=== PATIENT | female | born 1965 | race Caucasian/White ===

== ENCOUNTER 2016-11-25 10:17 | Emergency (ER) | payer OTHER ==
[~2016-11-25 10:17] MED LIST: CARV3.125 PO; FEXO60TA PO; LISI10TA PO; PLAV75TA PO; PRAV80TA PO
[2016-11-25 10:19] VITALS: BP 161/98; PULSE 75; RESP 15; TEMP 98.3; O2SAT 99
[2016-11-25 11:30] LABS: BLOOD, URINE NEG (NEG); GLUCOSE,URINE NEG (NEG); KETONE, URINE NEG (NEG); MUCUS URINE FEW /lpf (OCC); NITRITE,URINE NEG (NEG); SQUAMOUS EPITHELIAL CELL URINE 5 /hpf (0-5); URINE COLOR YELLOW (YELLW/STRAW)
[2016-11-25 11:32] LABS: COMMENT (UR) CULT NOT INDICATED; CULTURE IF INDICATED CULT NOT INDICATED
[2016-11-25] MEDS ORDERED: PLAV75TA29 PO (12:10)
[2016-11-25] MEDS ORDERED: CARV6.252 PO (12:10)
[2016-11-25] MEDS ORDERED: LISI30TA4 PO (12:10)
[2016-11-25] MEDS ORDERED: LOVA10TA PO (12:10)
[2016-11-25] MEDS ORDERED: ALLE60TA PO (12:10)
[2016-11-25] MEDS ORDERED: KETOROLAC TROMETHAMINE 60 MG/2 ML (IM) VIAL IM ONE (13:00)
--- NOTE | 2016-11-25 13:00 | PD ---
HPI Chief Complaint: Flank/Kidney Pain Time Seen by Provider: 12:43 Travel History International Travel<30 days: No Contact w/Intl Traveler<30days: No Traveled to known affect area: No History of Present Illness HPI Patient is a 51-year-old female presenting to emergency room for evaluation of left lower back and flank pain. Patient states that ongoing for 1 month, it seems to started when she started a new job at [employer]. 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 Patient feels that she could have a kidney stone which she has had in the past. She states the pain is an ache, it's constant but it's better in the morning. She states her pain is a 6 out of 10, she denies any dysuria, hematuria, fever, chills, abdominal pain, nausea or vomiting. She has taken Tylenol with some relief of her symptoms but it does not completely alleviate the pain. PFSH Past Medical History Arthritis: Yes Anxiety: No Depression: No Heart Rhythm Problems: No Cardiac Catheterization: No High Cholesterol: Yes Congestive Heart Failure: No Cerebrovascular Accident: Yes (4 x TIA) Diabetes: No Diminished Hearing: No Genitourinary: No Hypertension: Yes Musculoskeletal: Yes Neurologic: Yes Psychiatric: No Reproductive: No Respiratory: No Myocardial Infarction: No Tetanus Vaccination: > 5 Years Influenza Vaccination: No ?: Not LMP: IRREGULAR : 0 Past Surgical History AICD: No Body Medical Devices: PINS INSERTED IN RIGHT FOREARM Coronary Artery Bypass Graft: No Insulin Pump: No Joint Replacement: No Pacemaker: No Other Surgery: Yes Social History Alcohol Use: No Tobacco Use: No Substance Use: No Allergies-Medications (Allergen,Severity, Reaction): Coded Allergies: No Known Allergies (Verified , 11/25/16) Reported Meds & Prescriptions Reported Meds & Active Scripts Active Reported Emma Allergy (Fexofenadine HCl) 60 Mg Tab 60 Mg PO BID Lisinopril 30 Mg Tab 30 Mg PO DAILY Carvedilol 6.25 Mg Tab 6.25 Mg PO BID Plavix (Clopidogrel Bisulfate) 75 Mg Tab 75 Mg PO DAILY Lovastatin 10 Mg Tab 10 Mg PO DAILY Review of Systems Except as stated in HPI: all other systems reviewed are Neg Musculoskeletal: Positive: Myalgias Physical Exam Narrative GENERAL: Well-developed, well-nourished, alert female. Resting comfortably in no acute distress. SKIN: Warm and dry. HEAD: Atraumatic. Normocephalic. EYES: Pupils equal and round. No scleral icterus. No injection or drainage. ENT: No nasal bleeding or discharge. Mucous membranes pink and moist. NECK: Trachea midline. No JVD. CARDIOVASCULAR: Regular rate and rhythm. RESPIRATORY: No accessory muscle use. Clear to auscultation. Breath sounds equal bilaterally. GASTROINTESTINAL: Abdomen soft, non-tender, nondistended. Hepatic and splenic margins not palpable. No CVAT bilaterally. MUSCULOSKELETAL: Extremities without clubbing, cyanosis, or edema. No obvious deformities. Tenderness to palpation in left lower back adjacent to the lumbar spine. NEUROLOGICAL: Awake and alert. No obvious cranial nerve deficits. Motor grossly within normal limits. Five out of 5 muscle strength in the arms and legs. Normal speech. PSYCHIATRIC: Appropriate mood and affect; insight and judgment normal. Data Data Last Documented VS Vital Signs Date Time Temp Pulse Resp B/P (MAP) Pulse Ox O2 Delivery O2 Flow Rate FiO2 11/25/16 10:19 98.3 75 15 161/98 (119) 99 Orders Orders Urinalysis - C+S If Indicated (11/25/16 10:28) Ct Abd/Pel W/O Iv Contrast (11/25/16 ) Ketorolac Inj (Toradol Inj) (11/25/16 13:00) Labs Laboratory Tests Test 11/25/16 11:00 Urine Color YELLOW Urine Turbidity HAZY Urine pH 6.0 Urine Specific Brice 1.027 Urine Protein 30 mg/dL Urine Glucose (UA) NEG mg/dL Urine Ketones NEG mg/dL Urine Occult Blood NEG Urine Nitrite NEG Urine Bilirubin NEG Urine Urobilinogen 2.0 MG/DL Urine Leukocyte Esterase NEG Urine RBC 2 /hpf Urine WBC 1 /hpf Urine Squamous Epithelial Cells 5 /hpf Urine Mucus FEW /lpf Microscopic Urinalysis Comment CULT NOT INDICATED MDM Medical Decision Making Medical Screen Exam Complete: Yes Emergency Medical Condition: Yes Interpretation(s) Laboratory Tests Test 11/25/16 11:00 Urine Color YELLOW Urine Turbidity HAZY Urine pH 6.0 Urine Specific Brice 1.027 Urine Protein 30 mg/dL Urine Glucose (UA) NEG mg/dL Urine Ketones NEG mg/dL Urine Occult Blood NEG Urine Nitrite NEG Urine Bilirubin NEG Urine Urobilinogen 2.0 MG/DL Urine Leukocyte Esterase NEG Urine RBC 2 /hpf Urine WBC 1 /hpf Urine Squamous Epithelial Cells 5 /hpf Urine Mucus FEW /lpf Microscopic Urinalysis Comment CULT NOT INDICATED Vital Signs Date Time Temp Pulse Resp B/P (MAP) Pulse Ox O2 Delivery O2 Flow Rate FiO2 11/25/16 10:19 98.3 75 15 161/98 (119) 99 Differential Diagnosis Strain versus strain versus spasm versus kidney stone versus other Narrative Course Patient presented with left lower back pain. Initially there was a concern for kidney stone, her urine is unremarkable. Her vital signs are stable. There is tenderness palpation of paraspinal musculature in the lumbar region, no CVA tenderness noted on exam. CT of the abdomen and pelvis was ordered. CT which was read by the radiologist shows no evidence of renal calculi. It also mentions incidentally a fatty liver, cholelithiasis. Patient will be provided with a prescription for muscle relaxer and anti-inflammatory medication. She is encouraged to follow-up with her primary doctor, alternate heat and ice to affected area, continue range of motion exercises. She is reassured at this time that there is no findings of a kidney stone. She was encouraged to increase fluid intake. Additionally she can return to emergency department for any new or worsening symptoms. Diagnosis Primary Impression: Muscle ache Additional Impression: Back pain Qualified Codes: M54.5 - Low back pain Referrals: Primary Care Physician 1 week Patient Instructions: Acute Low Back Pain (ED), General Instructions, Muscle Spasm (ED), Muscle Strain (ED) Additional Instructions: Alternate heat and ice to affected area, continue range of motion exercises, avoid bed rest, avoid exacerbating activities Take medications as directed as needed Follow-up with her primary doctor Return to emergency department for any new or worsening symptoms Med/Other Pt SpecificInfo: Prescription(s) given Scripts Meloxicam (Meloxicam) 15 Mg Tab 15 MG PO DAILY Y for PAIN SCALE 1 TO 10, #30 TAB 0 Refills Prov: Viviana Bender 11/25/16 Cyclobenzaprine (Flexeril) 10 Mg Tab 10 MG PO TID Y for MUSCLE SPASM, #30 TAB 0 Refills Prov: Viviana Bender 11/25/16 Disposition: 01 DISCHARGE HOME Condition: Stable Viviana Bender Nov 25, 2016 13:00
--- NOTE | 2016-11-25 14:06 | RADRPT ---
EXAM DATE/TIME: 11/25/2016 13:28 [facility] COMPARISON: No previous studies available for comparison. INDICATIONS : Left flank pain. ORAL CONTRAST: No oral contrast ingested. RADIATION DOSE: 15.08 CTDIvol (mGy) MEDICAL HISTORY : Hypertension. SURGICAL HISTORY : None. ENCOUNTER: Initial ACUITY: 1 day PAIN SCALE: 5/10 LOCATION: Left flank TECHNIQUE: Volumetric scanning of the abdomen and pelvis was performed. Using automated exposure control and ad justment of the mA and/or kV according to patient size, radiation dose was kept as low as reasonably achievable to obtain optimal diagnostic quality images. DICOM format image data is available electro nically for review and comparison. FINDINGS: Lung bases are clear. The osseous structures are intact. No pleural effusions. The spleen, kidneys, a drenal glands are unremarkable. Cholelithiasis is noted. There is fatty infiltration of the liver. Ur inary bladder, uterus and adnexa are unremarkable. No evidence of bowel obstruction. Appendix is norm al. No renal or ureteral stones. CONCLUSION: 1. Fatty liver. 2. Cholelithiasis. 3. No inflammatory changes are seen, and there is no evidence for nephrolithiasis or obstructive urop je. Blair Simmons MD on November 25, 2016 at 14:03 Board Certified Radiologist. This report was verified electronically.
[2016-11-25] MEDS ORDERED: CYCL1TAB29 PO (14:17)
[2016-11-25] MEDS ORDERED: MELO-1 PO (14:17)
== END 2016-11-25 14:38 | disposition home or self-care (01) ==
LOC: NEPE 10:17
DX: M54.5 Low back pain (principal); M62.838 Other muscle spasm; I10 Essential (primary) hypertension; E78.00 Pure hypercholesterolemia, unspecified; Z86.73 Personal history of transient ischemic attack (TIA), and cerebral infarction without residual deficits
CPT/HCPCS: 74176; 81001; 96372; 99285; J1885